=== PATIENT | female | born 1950 | race Caucasian/White ===

== ENCOUNTER 2016-07-08 11:17 | Inpatient (IN) | payer MEDICARE, MEDICAID ==
--- NOTE | 2016-07-08 11:49 | ED Physician Chart ---
Chief Complaint/HPI - Patient Information Date Seen:: 07/08/16 Time Seen:: 11:23 Chief Complaint:: bloody mouth History of Present Illness:: THIS IS A 65 YO SHELTER PATIENT WHO WAS FOUND DOWN WITH BLOOD COMING OUT OR HER MOUTH THIS AM. SHE IS DEMENTED AND CANNOT SPEAK. Allergies:: Allergies Allergy/AdvReac Type Severity Reaction Status Date / Time ampicillin Allergy Verified 07/08/16 11:38 fish derived Allergy Verified 07/08/16 11:37 Penicillins Allergy Verified 07/08/16 11:38 Historian:: EMS, Medical Records Review:: Nurse's Note Reviewed Review of Systems - Review of Systems General/Constitutional: Other (THIS PATIENT IS UNABLE TO GIVE A REVIEW OF SYSTEMS) Past Medical History - Past Medical History Obtainable: Yes Past Medical History: CVA/TIA, Dementia Family History: None Social History: Non Smoker, No Alcohol, No Drug Use Surgical History: None Psychiatricy History: Dementia Medication: Reviewed Family Medical History - Family Member Mother History Unknown: Yes Ethnicity: Unknown Living Status: Unknown Other Medical History: Pt not responsive Physical Exam - Physical Examination General/Constitutional: Well-developed, well-nourished, Alert, No distress, GCS 15, Non-toxic appearing, Ambulatory Other Gen/Cons comments:: ALOC AND ABLE TO THINK AND SPEAK Head: Atraumatic Eyes: Lids, conjuctiva normal, PERRL, EOMI Skin: Nl inspection, No rash, No skin lesions, No ecchymosis, Well hydrated, No lymphadenopathy ENMT: External ears, nose nl, Nasal exam nl, Lips, teeth, gums nl (BLOOD IN THE MOUTH WITH CLOTS AND POOR DENTAL REPAIR.) Neck: Nontender, Full ROM w/o pain, No JVD, No nuchal rigidity, No bruit, No mass, No stridor Respiratory: Nl effort/Exclusion, Clear to Auscultation, No Wheeze/Rhonchi/Rales Cardio Vascular: RRR, No murmur, gallop, rubs, NL S1 S2 GI: No tenderness/rebounding/guarding, No organomegaly, No hernia, Normal BS's, Nondistended, No mass/bruits, No McBurney tenderness : No CVA tenderness Extremities: No tenderness or effusion, Full ROM, normal strength in all extremities, No edema, Normal digits & nails Other Extremities comments:: THERE IS SIGNIFICANT SEVERE MUSCLE WASTING OF ALL FOUR EXTREMITIES. Neuro/Psych: Alert/oriented, DTR's symmetric, Normal sensory exam Other Neuro/Psych comments:: THERE ARE FOCAL WEAK AREAS OF BOTH LOWER EXTREMITIES AND WEAKNESS OF BOTH UPPER EXTREMITIES. Misc: normal gait, Normal back, No paraspinal tenderness Labs/Radiology/EKG Results - Lab Results Results: Abnormal Lab Results 07/08/16 07/08/16 07/08/16 11:50 11:50 11:50 WBC 10.0 RBC 3.85 Hgb 11.4 L Hct 33.7 L MCV 87.5 MCH 29.6 MCHC Differential 33.8 RDW 14.7 Plt Count 246 MPV 9.1 Neutrophils % 76.4 Lymphocytes % 13.8 L Monocytes % 9.1 Eosinophils % 0.7 Basophils % 0.0 Sodium 143 Potassium 5.0 Chloride 112 H Carbon Dioxide 24.0 Anion Gap 12.0 BUN 66 H Creatinine 2.6 H Est GFR ( Amer) 23.6 Est GFR (Non-Af Amer) 19.5 BUN/Creatinine Ratio 25.4 Glucose 348 H Calcium 9.8 Total Bilirubin 0.3 AST 8 L ALT 25 Alkaline Phosphatase 66 Troponin I Total Protein 6.9 Albumin 3.4 L Globulin 3.5 Albumin/Globulin Ratio 1.0 Triglycerides 328 H Cholesterol 150 LDL Cholesterol Direct 70 L HDL Cholesterol 26 07/08/16 11:50 WBC RBC Hgb Hct MCV MCH MCHC Differential RDW Plt Count MPV Neutrophils % Lymphocytes % Monocytes % Eosinophils % Basophils % Sodium Potassium Chloride Carbon Dioxide Anion Gap BUN Creatinine Est GFR ( Amer) Est GFR (Non-Af Amer) BUN/Creatinine Ratio Glucose Calcium Total Bilirubin AST ALT Alkaline Phosphatase Troponin I 0.04 Total Protein Albumin Globulin Albumin/Globulin Ratio Triglycerides Cholesterol LDL Cholesterol Direct HDL Cholesterol - Radiology Results Results: chest x-ray = nad CT SCAN OF FACE = left maxillary sinusitis - EKG Interpretations EKG Time:: 12:07 Rhythm: NSR [place]: LEFT Rate: 85 ED Septic Shock - . Is Septic Shock (SBP<90, OR Lactate>4 mmol\L) present?: No Reassessment (Disposition) - Reassessment Reassessment Condition:: Unchanged - Diagnosis Diagnosis:: FACIAL TRAUMA bleeding from the mouth ESRD DIABETES MELLITUS - Aftercare/Follow up Instructions Aftercare/Follow-Up Instructions:: Counseled pt regarding lab results/diagnosis & need follow up, Refer to Discharge Instructions, Counseled pt & family regarding lab results/diagnosis & need follow up - Patient Disposition Discharge/Transfer:: Home Admitting Medical Physician:: Jees Kirkland Condition at Disposition:: Unchanged
[2016-07-08 12:02] LABS: % EOSINOPHILS 0.7 % (0.0-5.0); % LYMPHOCYTES 13.8 % (20.0-50.0); % MONOCYTES 9.1 % (2.0-10.0); % NEUTROPHILS 76.4 % (40.0-80.0); HEMATOCRIT 33.7 % (35.0-45.0); HEMOGLOBIN 11.4 gm/dL (11.7-16.1); MEAN CELL VOLUME 87.5 fl (81-100); MEAN CORPUSCULAR HEMOGLOBIN 29.6 pg (27.0-31.0); MEAN CORPUSCULAR HGB CONC 33.8 pg (28.0-36.0); MEAN PLATELET VOLUME 9.1 fl; NEUTROPHILE ABSOLUTE 7.6 Th/cmm (1.8-8.0); PLATELET COUNT 246 Th/cmm (150-400); RED BLOOD COUNT 3.85 Mil/cmm (3.80-5.20); RED CELL DISTRIBUTION WIDTH 14.7 % (11.5-20.0)
[2016-07-08 12:23] LABS: BILIRUBIN,TOTAL 0.3 mg/dL (0.3-1.0); BUN/CREATININE RATIO 25.4; CALCIUM SERUM 9.8 mg/dL (8.6-10.3); CHOLESTEROL 150 mg/dL (<200); CREATININE - SERUM 2.6 mg/dL (0.6-1.2); TRIGLYCERIDES 328 mg/dL (<150)
[2016-07-08 13:06] LABS: INR 0.93 (0.5-1.4); PROTHROMBIN TIME (TEST) 9.2 SECONDS (9.5-11.5)
[2016-07-08] MEDS ORDERED: ACETAMINOPHEN 650 MG PO PRN (14:45)
[2016-07-08] MEDS ORDERED: D5-0.45NS 1,000 ML IV SCH (14:45)
[2016-07-08] MEDS ORDERED: MINERAL OIL ENEMA 135 ML BOTTLE RC PRN ×2 (14:45→17:12)
[2016-07-08] MEDS ORDERED: Non-Formulary Item 1 EA (Ondansetron Hcl [Zofran*] 4 MG) PO PRN (14:45)
[2016-07-08] MEDS ORDERED: Dextromethorphan/Quinidine 20mg/10mg Cap PO SCH (14:45)
--- NOTE | 2016-07-08 16:06 | Admit Criteria Form ---
Admit Criteria Forms - Admit Criteria Diagnosis: RENAL FAILURE, CHRONIC Clinical Indications for Admission to Inpatient Care (Place 'X' for any and all applicable criteria): Admission is indicated for ANY ONE of the following (1)(2)(3)(4)(5): [ X]I. Inpatient admission required rather than observation care (Use Renal Failure, Chronic: Observation Care Criteria as appropriate) because of ANY ONE of the following: [ ]a) Volume overload or uremic symptoms (eg, clinically significant pulmonary edema, hypertension, pericarditis, acidosis) too severe for, or not responsive (eg, for over 24 hours) to emergency department or observation care dialysis or treatment regimen (11) [ ]b) Hemodynamic instability that is severe or persistent [ ]c) Respiratory distress that is severe or persistent (11) [ ]d) Clinically significant electrolyte abnormality that requires inpatient care (eg,hyperkalemia with severe ECG findings)[B] [ ]e) Supplement O2 or respiratory therapy for over 24hrs that is performable only in acute inpatient setting [ ]f) Continuous IV infusion of anticoagulation, platelet inhibitor, vasoactive, or Antiarrhythmic medication (15), [ ]g) Pulmonary artery catheter monitoring [ ]h) Temporary pacemaker placement [ ]i) Emergent pericardiocentesis [X ]j) Other condition, treatment or monitoring requiring inpatient admission [ ]II. Unexplained syncope [A] [ ]III. Recurrent seizures [ ]IV. Severe infections not treatable in outpatient setting (eg, peritonitis)(9 ) [ ]V. Cardiac arrhythmias of immediate concern [ ]. Encephalopathy [ ]VII.Bleeding abnormalities (eg, platelet dysfunction) with active (eg, gastrointestinal) bleeding Extended stay beyond goal length of stay may be needed for (3)(4)(35)(36): [ ]a) Continuing uremic complications [ ]b) Comorbidities or complications The original [employer] content created by [employer] has been revised. The portions of the content which have been revised are identified through the use of italic text or in bold, and [employer] [employer] [facility] [employer] has neither reviewed nor approved the modified material. All other unmodified content is copyright [employer]. Please see references footnoted in the original [employer] edition 2016 Admit Criteria Met?: Yes
[2016-07-08] MEDS ORDERED: INSULIN HUMAN REGULAR 100 UNITS/ML UNIT SUBQ SCH ×2 (16:30→21:00)
[2016-07-08] MEDS: D5-0.45NS 1,000 ML IV SCH (16:50)
[2016-07-08] MEDS ORDERED: Magnesium Hydroxide (MOM) 30 mL UDC PO SCH (17:00)
[2016-07-08] MEDS ORDERED: ERYTHROMYCIN BASE TP SCH (17:00)
[2016-07-08] MEDS ORDERED: Prednisolone 1% Ophth Susp 5 mL Bottle RIGHT EYE SCH (17:00)
[2016-07-08] MEDS ORDERED: CLOBETASOL PROPIONATE 0.05% TP SCH (17:00)
[2016-07-08] MEDS ORDERED: Lactulose 10 Gm/15 mL 30mL UDC PO SCH (17:00)
[2016-07-08] MEDS ORDERED: ETHANOL TP SCH (17:00)
[2016-07-08] MEDS ORDERED: Non-Formulary Item 1 EA (Clonidine Hcl [Clonidine Hcl] 0.2 MG) PO SCH (17:00)
[2016-07-08] MEDS: Dextromethorphan/Quinidine 20mg/10mg Cap PO SCH (17:30)
[2016-07-08 20:53] LABS: % LYMPHOCYTES 19.1 % (20.0-50.0); % NEUTROPHILS 69.3 % (40.0-80.0); HEMATOCRIT 32.3 % (35.0-45.0); HEMOGLOBIN 10.8 gm/dL (11.7-16.1); MEAN CELL VOLUME 87.8 fl (81-100); MEAN CORPUSCULAR HEMOGLOBIN 29.4 pg (27.0-31.0); MEAN CORPUSCULAR HGB CONC 33.4 pg (28.0-36.0); MEAN PLATELET VOLUME 8.7 fl; PLATELET COUNT 225 Th/cmm (150-400); RED BLOOD COUNT 3.67 Mil/cmm (3.80-5.20); RED CELL DISTRIBUTION WIDTH 14.5 % (11.5-20.0); WHITE BLOOD COUNT 9.7 Th/cmm (4.8-10.8)
[2016-07-08 20:54] LABS: % EOSINOPHILS 0.7 % (0.0-5.0); % MONOCYTES 9.9 % (2.0-10.0); NEUTROPHILE ABSOLUTE 6.6 Th/cmm (1.8-8.0)
[2016-07-08] MEDS ORDERED: INSULIN GLARGINE SUBQ SCH (21:00)
[2016-07-08] MEDS ORDERED: Non-Formulary Item 1 EA (Melatonin [Melatonin] 5 MG) PO SCH (21:00)
[2016-07-08] MEDS ORDERED: Insulin Detemir 100 units/mL 10mL Vial SUBQ SCH (21:00)
[2016-07-08] MEDS ORDERED: Non-Formulary Item 1 EA (Atorvastatin Calcium [Lipitor] 20 MG) PO SCH (21:00)
[2016-07-08] MEDS ORDERED: INSULIN HUMAN REGULAR 100 UNITS/ML UNIT ONE (22:22)
[2016-07-08] MEDS: Atorvastatin Calcium 10 MG TAB PO SCH (22:47)
[2016-07-08] MEDS: Insulin Detemir 100 units/mL 10mL Vial SUBQ SCH (22:48)
[2016-07-09 06:31] LABS: % BASOPHILS 0.7 % (0.0-2.0); % MONOCYTES 10.7 % (2.0-10.0); HEMOGLOBIN 9.8 gm/dL (11.7-16.1); NEUTROPHILE ABSOLUTE 5.6 Th/cmm (1.8-8.0); RED BLOOD COUNT 3.28 Mil/cmm (3.80-5.20); WHITE BLOOD COUNT 8.5 Th/cmm (4.8-10.8)
[2016-07-09] MEDS: INSULIN ASPART SLIDING SCALE 100 UNITS/ML UNIT SUBQ SCH ×4 (06:39→21:51)
[2016-07-09 06:56] LABS: ANION GAP 6.2 (7.0-16.0); BUN/CREATININE RATIO 27.9; CALCIUM SERUM 9.2 mg/dL (8.6-10.3); CARBON DIOXIDE 24.9 mEq/L (21.0-31.0); CREATININE - SERUM 2.4 mg/dL (0.6-1.2); POTASSIUM SERUM 4.1 mEq/L (3.5-5.1)
[2016-07-09 07:01] LABS: HEMATOCRIT 28.5 % (35.0-45.0); MEAN CELL VOLUME 86.9 fl (81-100); MEAN CORPUSCULAR HEMOGLOBIN 29.9 pg (27.0-31.0)
[2016-07-09 07:02] LABS: % EOSINOPHILS 0.9 % (0.0-5.0); % LYMPHOCYTES 20.6 % (20.0-50.0); % NEUTROPHILS 67.1 % (40.0-80.0); MEAN CORPUSCULAR HGB CONC 34.4 pg (28.0-36.0); MEAN PLATELET VOLUME 9.1 fl; PLATELET COUNT 196 Th/cmm (150-400); RED CELL DISTRIBUTION WIDTH 14.5 % (11.5-20.0)
--- NOTE | 2016-07-09 08:36 | History & Physical ---
CHIEF COMPLAINT: Bleeding from the mouth. HISTORY OF PRESENT ILLNESS: This is a 65-year-old female who was transferred from care home facility to [facility] ER after nursing staff noted bleeding from her mouth. The patient was apparently eating breakfast in the morning after which they noted some bleeding coming from her mouth and lips. They were unable to identify the location of the bleeding. She was subsequently brought here to the ER at [facility] for further evaluation. While in the ER, the patient had some initial lab work. Her WBCs was 10.0, hemoglobin 11.4, hematocrit 33.7, platelets 246. PT/INR was normal at 9.2 and 0.93. Chem-7, sodium 143, potassium 5.0, chloride 112, bicarbonate 24, BUN 66, creatinine 2.6, glucose was 340. Liver enzymes normal ____ alkaline phosphatase 66, ALT was 25, albumin was 3.4. Lipid panel: Cholesterol was 150, triglycerides 328, LDL 70, HDL 26. RPR was nonreactive. Hemoglobin A1c was 7.7. PAST MEDICAL HISTORY: Includes diabetes mellitus, pseudobulbar affect disorder, hypertension, hyperlipidemia, dysphagia, dementia, encephalopathy, generalized anxiety disorder, blindness, anemia, chronic kidney disease, stage III, CVA, muscle weakness, and osteoporosis. ALLERGIES: PENICILLIN. SOCIAL HISTORY: The patient is a resident of a care home facility. Denies any smoking or drinking. FAMILY HISTORY: Noncontributory. MEDICATIONS: See med list. REVIEW OF SYSTEMS: Unable to obtain due to patient's current condition. PHYSICAL EXAMINATION: VITAL SIGNS: Temperature 98.9, pulse 80, respiration 19, blood pressure 148/76. GENERAL: This is a 65-year-old female, well developed, well nourished, appears stated age. HEENT: Normocephalic, atraumatic. Pupils equal, round, reactive to light and accommodation. Extraocular muscles intact. Ears: TMs intact. Oral cavity noted for clots with dark brownish colored blood. NECK: Supple, good range of motion, no thyromegaly, no lymphadenopathy. CARDIOVASCULAR: Regular rate and rhythm, no murmurs, rubs or clicks. LUNGS: Clear to auscultation. No rales, rhonchi or wheezing. ABDOMEN: Soft, nontender, nondistended. Bowel sounds are active in all 4 quadrants. No rebound tenderness or rigidity. No guarding. ASSESSMENT: 1. Bleeding from oral cavity. 2. Diabetes. 3. Pseudobulbar affect disorder. 4. Hypertension. 5. Hyperlipidemia 6. Dysphagia. 7. Dementia. 8. Encephalopathy. 9. Generalized anxiety. 10. Blindness. 11. History of anemia. 12. Chronic kidney disease, stage III. 13. Cerebrovascular accident. 14. Muscle weakness/ 15. Osteoporosis. PLAN: We will repeat CBC for tomorrow morning. We will order a GI consult with Dr. Zamudio. We will type and screen 2 units of packed red blood cells and transfuse only if hemoglobin is less than 8.5. We will hold aspirin for now, but continue current medications. [facility]# [id number]
--- NOTE | 2016-07-09 08:58 | Diagnostic Imaging Report ---
Portable chest x-ray HISTORY: Pain, trauma The overall heart size is difficult to assess with portable technique in a poor inspiration. No focal pulmonary processes. No hilar or mediastinal abnormalities. IMPRESSION: No acute focal pulmonary processes
[2016-07-09] MEDS ORDERED: Calcium Carb/Vit D 500 mg/200 U Tab PO SCH (09:00)
[2016-07-09] MEDS ORDERED: Aspirin 81mg Chewable Tab PO SCH (09:00)
[2016-07-09] MEDS ORDERED: Non-Formulary Item 1 EA (Multivitamin [Multivitamins] 1 SGL) PO SCH (09:00)
[2016-07-09] MEDS ORDERED: ACIDOPH PARACASEI B LACTIS PO SCH (09:00)
[2016-07-09] MEDS: Clobetasol Propionate 0.05% Cream 45 gm Tube TP SCH ×2 (09:02→17:22)
[2016-07-09] MEDS: Prednisolone 1% Ophth Susp 5 mL Bottle RIGHT EYE SCH ×2 (09:03→17:22)
--- NOTE | 2016-07-09 09:07 | Diagnostic Imaging Report ---
CT scan facial bones HISTORY: Pain, trauma Total DLP equals 449 CTDI equals 22.4 Axial sections were obtained through the facial bones. Additional coronal and sagittal reformatted images are provided. There is retention of normal bony margins about the orbits. No fractures. The zygomatic arches are intact. The pterygoid plates are intact. The nasal bones appear normal. Mild mucosal thickening noted within the left and to lesser degree right maxillary sinuses. The nasopharyngeal region is unremarkable. IMPRESSION: 1. No acute bony abnormalities 2. Minimal mucosal thickening within the maxillary sinuses
[2016-07-09] MEDS: D5-0.45NS 1,000 ML IV SCH (13:56)
[2016-07-09] MEDS: Aspirin 81mg Chewable Tab PO SCH (13:57)
[2016-07-09] MEDS: Calcium Carb/Vit D 500 mg/200 U Tab PO SCH (13:57)
[2016-07-09] MEDS: Multivitamin Tab PO SCH (13:58)
[2016-07-09] MEDS: Magnesium Hydroxide (MOM) 30 mL UDC PO SCH ×2 (13:58→17:23)
[2016-07-09] MEDS: Lactulose 10 Gm/15 mL 30mL UDC PO SCH ×2 (13:58→17:23)
[2016-07-09] MEDS: Dextromethorphan/Quinidine 20mg/10mg Cap PO SCH (17:23)
[2016-07-09] MEDS: Atorvastatin Calcium 10 MG TAB PO SCH (21:50)
[2016-07-09] MEDS: Insulin Detemir 100 units/mL 10mL Vial SUBQ SCH (21:52)
[2016-07-10] MEDS: INSULIN ASPART SLIDING SCALE 100 UNITS/ML UNIT SUBQ SCH ×4 (06:38→21:20)
[2016-07-10 09:25] LABS: % BASOPHILS 0.7 % (0.0-2.0); % EOSINOPHILS 0.7 % (0.0-5.0); % LYMPHOCYTES 13.9 % (20.0-50.0); % MONOCYTES 7.2 % (2.0-10.0); % NEUTROPHILS 77.5 % (40.0-80.0); HEMATOCRIT 30.2 % (35.0-45.0); HEMOGLOBIN 10.2 gm/dL (11.7-16.1); MEAN CORPUSCULAR HEMOGLOBIN 29.8 pg (27.0-31.0); MEAN CORPUSCULAR HGB CONC 33.9 pg (28.0-36.0); MEAN PLATELET VOLUME 9.4 fl; NEUTROPHILE ABSOLUTE 5.8 Th/cmm (1.8-8.0); PLATELET COUNT 205 Th/cmm (150-400); RED BLOOD COUNT 3.43 Mil/cmm (3.80-5.20); RED CELL DISTRIBUTION WIDTH 15.2 % (11.5-20.0); WHITE BLOOD COUNT 7.5 Th/cmm (4.8-10.8)
[2016-07-10 09:32] LABS: ANION GAP 5.2 (7.0-16.0); BILIRUBIN,TOTAL 0.4 mg/dL (0.3-1.0); BUN/CREATININE RATIO 27.6; CALCIUM SERUM 9.2 mg/dL (8.6-10.3); CARBON DIOXIDE 23.8 mEq/L (21.0-31.0); CREATININE - SERUM 2.1 mg/dL (0.6-1.2)
[2016-07-10] MEDS: Calcium Carb/Vit D 500 mg/200 U Tab PO SCH (09:46)
[2016-07-10] MEDS: Aspirin 81mg Chewable Tab PO SCH (09:46)
[2016-07-10] MEDS: Lactulose 10 Gm/15 mL 30mL UDC PO SCH ×2 (09:47→16:30)
[2016-07-10] MEDS: Magnesium Hydroxide (MOM) 30 mL UDC PO SCH ×3 (09:48→18:34)
[2016-07-10] MEDS: Multivitamin Tab PO SCH (09:48)
[2016-07-10] MEDS: Prednisolone 1% Ophth Susp 5 mL Bottle RIGHT EYE SCH ×3 (09:57→18:34)
[2016-07-10] MEDS: Clobetasol Propionate 0.05% Cream 45 gm Tube TP SCH ×2 (09:57→14:00)
[2016-07-10] MEDS: Dextromethorphan/Quinidine 20mg/10mg Cap PO SCH (18:33)
--- NOTE | 2016-07-10 20:56 | General Progress Note ---
Subjective - Review of Systems Service Date: 07/10/16 Subjective: DELAYED NOTE ENTRY. NO MORE MOUTH BLEEDING. Objective - Results Result Diagrams: 07/10/16 09:00 07/10/16 09:00 Recent Labs: Laboratory Last Values WBC 7.5 Th/cmm (4.8-10.8) 07/10/16 09:00 RBC 3.43 Mil/cmm (3.80-5.20) L 07/10/16 09:00 Hgb 10.2 gm/dL (11.7-16.1) L 07/10/16 09:00 Hct 30.2 % (35.0-45.0) L 07/10/16 09:00 MCV 88.0 fl (81-100) 07/10/16 09:00 MCH 29.8 pg (27.0-31.0) 07/10/16 09:00 MCHC Differential 33.9 pg (28.0-36.0) 07/10/16 09:00 RDW 15.2 % (11.5-20.0) 07/10/16 09:00 Plt Count 205 Th/cmm (150-400) 07/10/16 09:00 MPV 9.4 fl 07/10/16 09:00 Neutrophils % 77.5 % (40.0-80.0) 07/10/16 09:00 Lymphocytes % 13.9 % (20.0-50.0) L 07/10/16 09:00 Monocytes % 7.2 % (2.0-10.0) 07/10/16 09:00 Eosinophils % 0.7 % (0.0-5.0) 07/10/16 09:00 Basophils % 0.7 % (0.0-2.0) 07/10/16 09:00 PT 9.2 SECONDS (9.5-11.5) L 07/08/16 11:50 INR 0.93 (0.5-1.4) 07/08/16 11:50 PTT (Actin FS) 19.1 SECONDS (26.0-38.0) L 07/08/16 11:50 Sodium 146 mEq/L (136-145) H 07/10/16 09:00 Potassium 4.0 mEq/L (3.5-5.1) 07/10/16 09:00 Chloride 121 mEq/L (98-107) H 07/10/16 09:00 Carbon Dioxide 23.8 mEq/L (21.0-31.0) 07/10/16 09:00 Anion Gap 5.2 (7.0-16.0) L 07/10/16 09:00 BUN 58 mg/dL (7-25) H 07/10/16 09:00 Creatinine 2.1 mg/dL (0.6-1.2) H 07/10/16 09:00 Est GFR ( Amer) 30.2 ml/min (>90) 07/10/16 09:00 Est GFR (Non-Af Amer) 25.0 ml/min 07/10/16 09:00 BUN/Creatinine Ratio 27.6 07/10/16 09:00 Glucose 375 mg/dL (70-105) H 07/10/16 09:00 POC Glucose 327 MG/DL (70 - 105) H 07/10/16 05:50 Hemoglobin A1c % 7.7 % (4.0-6.0) H 07/08/16 13:08 Calcium 9.2 mg/dL (8.6-10.3) 07/10/16 09:00 Total Bilirubin 0.4 mg/dL (0.3-1.0) 07/10/16 09:00 AST 7 U/L (13-39) L 07/10/16 09:00 ALT 12 U/L (7-52) 07/10/16 09:00 Alkaline Phosphatase 53 U/L (34-104) 07/10/16 09:00 Troponin I 0.04 ng/mL (0.01-0.05) 07/08/16 11:50 Total Protein 6.2 gm/dL (6.0-8.3) 07/10/16 09:00 Albumin 3.1 gm/dL (3.7-5.3) L 07/10/16 09:00 Globulin 3.1 gm/dL 07/10/16 09:00 Albumin/Globulin Ratio 1.0 (1.0-1.8) 07/10/16 09:00 Triglycerides 328 mg/dL (<150) H 07/08/16 11:50 Cholesterol 150 mg/dL (<200) 07/08/16 11:50 LDL Cholesterol Direct 70 mg/dL (75-193) L 07/08/16 11:50 HDL Cholesterol 26 mg/dL (23-92) 07/08/16 11:50 RPR NONREACTIVE (NONREACTIVE) 07/08/16 11:50 Blood Type O POSITIVE 07/08/16 20:49 Antibody Screen NEGATIVE 07/08/16 20:49 - Physical Exam Vitals and I&O: Vital Signs Temp 98.7 F 07/10/16 20:00 Pulse 95 07/10/16 20:00 Resp 19 07/10/16 20:00 BP 127/82 07/10/16 20:00 Pulse Ox 95 07/10/16 20:00 Intake & Output 07/10/16 07/10/16 07/11/16 06:59 18:59 06:59 Intake Total 540 Balance 540 Intake: Oral 540 Other: # Voids 3 # Bowel Movements 0 Active Medications: Current Medications Acetaminophen (Tylenol) 325 mg PO Q4H PRN PRN Reason: Fever > 101 Stop: 09/06/16 17:11 Acetaminophen (Tylenol) 650 mg PO Q4H PRN PRN Reason: Pain (Mild) Stop: 09/06/16 17:42 Aspirin (Aspirin Chewable) 81 mg PO DAILY [facility] Stop: 09/07/16 08:59 Last Admin: 07/10/16 09:46 Dose: Not Given Atorvastatin Calcium (Lipitor) 20 mg PO HS [facility] PRN Reason: Protocol Stop: 09/06/16 20:59 Last Admin: 07/09/16 21:50 Dose: 20 mg Brimonidine Tartrate (Alphagan 0.2% Ophth Soln) 1 drop RIGHT EYE BID [facility] Stop: 09/07/16 08:59 Last Admin: 07/10/16 14:00 Dose: 1 drop Calcium/Vitamin D (Oscal W/Vitamin D) 1 tab PO DAILY [facility] Stop: 09/07/16 08:59 Last Admin: 07/10/16 09:46 Dose: Not Given Clobetasol Propionate (Temovate 0.05% Cream) 1 appl TP BID [facility] Stop: 09/07/16 08:59 Last Admin: 07/10/16 14:00 Dose: 1 appl Clonidine HCl (Catapres) 0.2 mg PO BID [facility] Stop: 09/07/16 08:59 Last Admin: 07/10/16 16:37 Dose: 0.2 mg Dextromethorphan/Quinidine (Nuedexta 20mg-10mg) 1 cap PO Q24H [facility] Stop: 09/06/16 17:14 Last Admin: 07/10/16 18:33 Dose: 1 cap Docusate Sodium (Colace) 250 mg PO TID [facility] Stop: 09/06/16 20:59 Last Admin: 07/10/16 14:00 Dose: 250 mg Glipizide (Glucotrol) 5 mg PO BIDAC [facility] Stop: 09/07/16 07:29 Last Admin: 07/10/16 14:00 Dose: 5 mg Insulin Aspart (Novolog Insulin Sliding Scale) 0 units SUBQ ACHS [facility] PRN Reason: Protocol Stop: 09/07/16 07:29 Last Admin: 07/10/16 16:58 Dose: 8 units Insulin Detemir (Levemir Insulin) 35 units SUBQ HS [facility] PRN Reason: Protocol Stop: 09/06/16 20:59 Last Admin: 07/09/16 21:52 Dose: Not Given Lactulose (Cephulac) 30 gm PO BID [facility] Stop: 09/07/16 08:59 Last Admin: 07/10/16 16:30 Dose: 30 gm Latanoprost (Xalatan 0.005% [facility]) 1 drop RIGHT EYE HS [facility] Stop: 09/06/16 20:59 Last Admin: 07/10/16 00:56 Dose: Not Given Magnesium Hydroxide (Milk Of Magnesia) 10 ml PO BID [facility] Stop: 09/07/16 08:59 Last Admin: 07/10/16 18:34 Dose: 10 ml Mineral Oil (Fleet Mineral Oil) 135 ml RC Q24H PRN PRN Reason: Constipation Stop: 09/06/16 17:11 Miscellaneous (Clinical Monitoring) 1 ea MC PRN PRN PRN Reason: RENAL DOSING Stop: 09/08/16 12:47 Multivitamins/Vitamin C (Theragran) 1 tab PO DAILY [facility] Stop: 09/07/16 08:59 Last Admin: 07/10/16 09:48 Dose: Not Given Ondansetron HCl (Zofran Odt) 4 mg PO Q6H PRN PRN Reason: Nausea / Vomiting Stop: 09/06/16 17:11 Pantoprazole Sodium (Protonix) 40 mg IVP DAILY [facility] Stop: 09/08/16 08:59 Last Admin: 07/10/16 10:36 Dose: 40 mg Prednisolone Acetate (Pred Forte 1% Ophth Susp) 1 drop RIGHT EYE BID [facility] Stop: 09/07/16 08:59 Last Admin: 07/10/16 18:34 Dose: 1 drop General: No acute distress HEENT: Atraumatic Neck: Supple Cardiovascular: Regular rate Lungs: Clear to auscultation Abdomen: Bowel sounds Assessment/Plan - Problem List Patient Problems: All Active Problems ORAL BLEEDING WITH NO WITNESSED TRAUMA (Acute) - Assessment Assessment: 1. OROPHARYNGEAL BLEEDING, NOW STOPPED. DOUBT UGI BLEED. 2. ANEMIA. 3. HX ENCEPHALOPATHY. 4. H/O DM - Plan Plan: 1. EGD OFFERED - SISTER KATIE REFUSED. 2. ORAL DIET DREW. 3. PROTONIX. 4. MONITOR HGB; TRANSFUSE PRN.
[2016-07-10] MEDS: Atorvastatin Calcium 10 MG TAB PO SCH (21:12)
[2016-07-10] MEDS: Insulin Detemir 100 units/mL 10mL Vial SUBQ SCH (21:15)
--- NOTE | 2016-07-10 22:49 | Consultation ---
GASTROENTEROLOGY CONSULTATION: REQUESTING PHYSICIAN: Jese Kirkland D.O. REASON FOR CONSULTATION: Possible GI bleed. HISTORY OF PRESENT ILLNESS: A 65-year-old female admitted for initial mouth bleeding. There is a question of also GI bleeding. We were asked to evaluate the patient for further evaluation. By the time she came to this hospital, her bleeding has likely stopped. Past medical is notable for diabetes mellitus, pseudobulbar affect disorder, hypertension, hyperlipidemia, dysphagia, dementia, encephalopathy, generalized anxiety disorder, blindness, anemia, chronic kidney disease stage III, old stroke, muscle weakness and osteoporosis. PAST MEDICAL HISTORY: As above. SOCIAL HISTORY: As above. MEDICATIONS: Here are Tylenol, baby aspirin, Lipitor, eye drops, Os-Roger D, Nuedexta, Colace, Glucotrol, insulin sliding scale, Levemir, lactulose, Fleet enema, milk of magnesia, Protonix, Zofran. ALLERGIES: To ampicillin and penicillin, anything fish arrived. SOCIAL HISTORY: No recent tobacco, alcohol or drugs. FAMILY HISTORY: Noncontributory. REVIEW OF SYSTEMS: Negative. PHYSICAL EXAMINATION: VITAL SIGNS: Temperature of 98.7, blood pressure 127/82, pulse of 95, respirations 19, O2 saturation is 95%. GENERAL: The patient is well-developed elderly female who is in no acute distress, nonverbal. HEENT: Sclerae are nonicteric. Oropharynx is with dried blood in the oropharynx. No active bleeding identified. CARDIOVASCULAR: Regular rate and rhythm. LUNGS: With occasional rhonchi at the bases. ABDOMEN: Soft, nontender, nondistended. EXTREMITIES: No clubbing, cyanosis or edema. RECTAL: Exam is deferred. LABORATORY DATA/IMAGING: WBC initially 9.7, hemoglobin 10.8 this morning it is 9.8, platelet count is normal. INR is normal. Creatinine is 2.4. Liver enzymes are essentially normal. Albumin 3.4. IMPRESSION: 1. Mouth versus upper gastrointestinal bleed. If mouth bleeding, it could be trauma. If upper gastrointestinal bleed, that could be esophagitis, gastritis, peptic ulcer disease, etc. 2. History of diabetes mellitus. 3. History of hypertension. 4. Chronic kidney disease. 5. Mild anemia. RECOMMENDATIONS: 1. Consider upper endoscopy if family is agreeable. 2. Protonix. 3. Antiemetics. 4. Consider n.p.o. versus clear liquids for now. 5. Further recommendations following upper endoscopy if feasible. Thank you, Dr. Jese Kirkland, for involving us in the care of your patient. If you have any further questions, please call us. JOB# [id number]
[2016-07-11] MEDS: INSULIN ASPART SLIDING SCALE 100 UNITS/ML UNIT SUBQ SCH ×4 (07:09→21:24)
[2016-07-11] MEDS: Calcium Carb/Vit D 500 mg/200 U Tab PO SCH (09:31)
[2016-07-11] MEDS: Aspirin 81mg Chewable Tab PO SCH (09:31)
[2016-07-11] MEDS: Clobetasol Propionate 0.05% Cream 45 gm Tube TP SCH ×2 (09:31→18:09)
[2016-07-11] MEDS: Lactulose 10 Gm/15 mL 30mL UDC PO SCH ×2 (09:31→16:53)
[2016-07-11] MEDS: Multivitamin Tab PO SCH (09:31)
[2016-07-11] MEDS: Magnesium Hydroxide (MOM) 30 mL UDC PO SCH ×2 (09:31→16:53)
[2016-07-11] MEDS: Prednisolone 1% Ophth Susp 5 mL Bottle RIGHT EYE SCH ×2 (09:32→17:16)
--- NOTE | 2016-07-11 10:56 | Diagnostic Imaging Report ---
CT scan of the brain without intravenous contrast HISTORY: Stroke, CVA Total DLP equals 636 CTDI equals 35.8 Axial sections were obtained from the base of the skull to the vertex. There is rather marked enlargement of ventricular system and enlargement of cerebral sulci reflecting atrophy somewhat pronounced for the patient's age. Extensive hypodensity is seen throughout the supratentorial ventricular and deep white matter regions. No mass effect. Findings may be associated with chronic small vessel ischemic disease. No acute intracerebral hemorrhage. Again, no mass effect or shift of midline structures. No extra-axial masses or abnormal fluid collections. Atherosclerotic vascular calcification is seen in the region of the vertebral and basilar arteries at the base of the skull. IMPRESSION: 1. No definite acute abnormalities 2. Rather marked cerebral atrophy particularly for patient's age 3. Extensive supratentorial white matter changes that may be associated with chronic small vessel ischemic disease
--- NOTE | 2016-07-11 13:09 | History & Physical ---
HISTORY OF PRESENT ILLNESS: The patient is a 65-year-old. The patient from [facility], unclear what the baseline is. She is basically in bed at the moment. She had been admitted because of some bleeding in the mouth. It is unclear whether she had seizure or not. The patient had noted to be lethargic. Not eating much. Not able to get out of bed. As indicated above, we do not know whether she has had problems or what her baseline is whether she is able to walk or not. PAST MEDICAL HISTORY: Diabetes, hypertension, hyperlipidemia, dysphagia, dementia, encephalopathy, anxiety disorder, blindness. Previous history of CVA, muscles weakness, osteoporosis, kidney, stage III. ALLERGIES: PENICILLIN. SOCIAL HISTORY: She does not smoke or drink. MEDICATIONS: As per reconciliation. REVIEW OF SYSTEMS: Twelve-point negative except for above. PHYSICAL EXAMINATION: VITAL SIGNS: Temperature 98.4, blood pressure 140/74, pulse is around about 82. NECK: Supple. No bruits. HEART: Sounds S1, S2. LUNGS: Clear. ABDOMEN: Soft. NEUROLOGIC: The patient is lying in bed. She will open her eyes to her name actually. She follows some simple instructions for me. For example, she did try to lift her arms up, but weak. Cranial: Pupils react to light. No marked facial paralysis. Motor: She is weak both in the upper and lower extremity. Generally diffusely weak. Reflexes, -1 in upper extremity, ____ absent in the knees and ankles. Gait not tested. INVESTIGATIONS: CT scan of the head shows severe atrophy. Labs noted. IMPRESSION: 1. Encephalopathy. 2. Hypertension. 3. Hyperlipidemia. 4. Dementia. 5. Generalized weakness. 6. Blindness. 7. Previous stroke. No acute stroke noted on the CAT scan. MANAGEMENT: The patient with difficulty swallowing, will have to ____ whether she needs some feeding modality. ____ patient's lab studies. Further workup depending on the progress. JOB# [id number]
--- NOTE | 2016-07-11 13:15 | General Progress Note ---
Subjective - Review of Systems Service Date: 07/11/16 Subjective: DREW ORAL DIET. NO MORE MOUTH BLEEDING. Objective - Results Result Diagrams: 07/10/16 09:00 07/10/16 09:00 Recent Labs: Laboratory Last Values WBC 7.5 Th/cmm (4.8-10.8) 07/10/16 09:00 RBC 3.43 Mil/cmm (3.80-5.20) L 07/10/16 09:00 Hgb 10.2 gm/dL (11.7-16.1) L 07/10/16 09:00 Hct 30.2 % (35.0-45.0) L 07/10/16 09:00 MCV 88.0 fl (81-100) 07/10/16 09:00 MCH 29.8 pg (27.0-31.0) 07/10/16 09:00 MCHC Differential 33.9 pg (28.0-36.0) 07/10/16 09:00 RDW 15.2 % (11.5-20.0) 07/10/16 09:00 Plt Count 205 Th/cmm (150-400) 07/10/16 09:00 MPV 9.4 fl 07/10/16 09:00 Neutrophils % 77.5 % (40.0-80.0) 07/10/16 09:00 Lymphocytes % 13.9 % (20.0-50.0) L 07/10/16 09:00 Monocytes % 7.2 % (2.0-10.0) 07/10/16 09:00 Eosinophils % 0.7 % (0.0-5.0) 07/10/16 09:00 Basophils % 0.7 % (0.0-2.0) 07/10/16 09:00 PT 9.2 SECONDS (9.5-11.5) L 07/08/16 11:50 INR 0.93 (0.5-1.4) 07/08/16 11:50 PTT (Actin FS) 19.1 SECONDS (26.0-38.0) L 07/08/16 11:50 Sodium 146 mEq/L (136-145) H 07/10/16 09:00 Potassium 4.0 mEq/L (3.5-5.1) 07/10/16 09:00 Chloride 121 mEq/L (98-107) H 07/10/16 09:00 Carbon Dioxide 23.8 mEq/L (21.0-31.0) 07/10/16 09:00 Anion Gap 5.2 (7.0-16.0) L 07/10/16 09:00 BUN 58 mg/dL (7-25) H 07/10/16 09:00 Creatinine 2.1 mg/dL (0.6-1.2) H 07/10/16 09:00 Est GFR ( Amer) 30.2 ml/min (>90) 07/10/16 09:00 Est GFR (Non-Af Amer) 25.0 ml/min 07/10/16 09:00 BUN/Creatinine Ratio 27.6 07/10/16 09:00 Glucose 375 mg/dL (70-105) H 07/10/16 09:00 POC Glucose 133 MG/DL (70 - 105) H 07/11/16 11:27 Hemoglobin A1c % 7.7 % (4.0-6.0) H 07/08/16 13:08 Calcium 9.2 mg/dL (8.6-10.3) 07/10/16 09:00 Total Bilirubin 0.4 mg/dL (0.3-1.0) 07/10/16 09:00 AST 7 U/L (13-39) L 07/10/16 09:00 ALT 12 U/L (7-52) 07/10/16 09:00 Alkaline Phosphatase 53 U/L (34-104) 07/10/16 09:00 Troponin I 0.04 ng/mL (0.01-0.05) 07/08/16 11:50 Total Protein 6.2 gm/dL (6.0-8.3) 07/10/16 09:00 Albumin 3.1 gm/dL (3.7-5.3) L 07/10/16 09:00 Globulin 3.1 gm/dL 07/10/16 09:00 Albumin/Globulin Ratio 1.0 (1.0-1.8) 07/10/16 09:00 Triglycerides 328 mg/dL (<150) H 07/08/16 11:50 Cholesterol 150 mg/dL (<200) 07/08/16 11:50 LDL Cholesterol Direct 70 mg/dL (75-193) L 07/08/16 11:50 HDL Cholesterol 26 mg/dL (23-92) 07/08/16 11:50 RPR NONREACTIVE (NONREACTIVE) 07/08/16 11:50 Blood Type O POSITIVE 07/08/16 20:49 Antibody Screen NEGATIVE 07/08/16 20:49 - Physical Exam Vitals and I&O: Vital Signs Temp 98.7 F 07/11/16 08:00 Pulse 85 07/11/16 09:31 Resp 19 07/11/16 08:00 BP 127/82 07/11/16 08:00 Pulse Ox 95 07/11/16 08:00 Intake & Output 07/10/16 07/11/16 07/11/16 18:59 06:59 18:59 Intake Total 790 Balance 790 Intake: Oral 790 Other: # Voids 2 # Bowel Movements 0 Active Medications: Current Medications Acetaminophen (Tylenol) 325 mg PO Q4H PRN PRN Reason: Fever > 101 Stop: 09/06/16 17:11 Acetaminophen (Tylenol) 650 mg PO Q4H PRN PRN Reason: Pain (Mild) Stop: 09/06/16 17:42 Aspirin (Aspirin Chewable) 81 mg PO DAILY [facility] Stop: 09/07/16 08:59 Last Admin: 07/11/16 09:31 Dose: Not Given Atorvastatin Calcium (Lipitor) 20 mg PO HS [facility] PRN Reason: Protocol Stop: 09/06/16 20:59 Last Admin: 07/10/16 21:12 Dose: 20 mg Brimonidine Tartrate (Alphagan 0.2% Ophth Soln) 1 drop RIGHT EYE BID [facility] Stop: 09/07/16 08:59 Last Admin: 07/11/16 09:31 Dose: Not Given Calcium/Vitamin D (Oscal W/Vitamin D) 1 tab PO DAILY [facility] Stop: 09/07/16 08:59 Last Admin: 07/11/16 09:31 Dose: Not Given Clobetasol Propionate (Temovate 0.05% Cream) 1 appl TP BID [facility] Stop: 09/07/16 08:59 Last Admin: 07/11/16 09:31 Dose: Not Given Clonidine HCl (Catapres) 0.2 mg PO BID [facility] Stop: 09/07/16 08:59 Last Admin: 07/11/16 09:31 Dose: Not Given Docusate Sodium (Colace) 250 mg PO TID [facility] Stop: 09/06/16 20:59 Last Admin: 07/11/16 09:31 Dose: Not Given Glipizide (Glucotrol) 5 mg PO BIDAC [facility] Stop: 09/07/16 07:29 Last Admin: 07/11/16 07:07 Dose: 5 mg Potassium Chloride 10 meq/ (Sodium Chloride) 1,005 mls @ 50 mls/hr IV .Q20H6M [facility] Stop: 09/09/16 08:29 Last Admin: 07/11/16 10:49 Dose: 50 mls/hr Insulin Aspart (Novolog Insulin Sliding Scale) 0 units SUBQ ACHS [facility] PRN Reason: Protocol Stop: 09/07/16 07:29 Last Admin: 07/11/16 12:27 Dose: Not Given Insulin Detemir (Levemir Insulin) 35 units SUBQ HS [facility] PRN Reason: Protocol Stop: 09/06/16 20:59 Last Admin: 07/10/16 21:15 Dose: 35 units Lactulose (Cephulac) 30 gm PO BID [facility] Stop: 09/07/16 08:59 Last Admin: 07/11/16 09:31 Dose: Not Given Latanoprost (Xalatan 0.005% [facility]) 1 drop RIGHT EYE HS [facility] Stop: 09/06/16 20:59 Last Admin: 07/10/16 22:17 Dose: Not Given Magnesium Hydroxide (Milk Of Magnesia) 10 ml PO BID [facility] Stop: 09/07/16 08:59 Last Admin: 07/11/16 09:31 Dose: Not Given Mineral Oil (Fleet Mineral Oil) 135 ml RC Q24H PRN PRN Reason: Constipation Stop: 09/06/16 17:11 Miscellaneous (Clinical Monitoring) 1 ea MC PRN PRN PRN Reason: RENAL DOSING Stop: 09/08/16 12:47 Multivitamins/Vitamin C (Theragran) 1 tab PO DAILY [facility] Stop: 09/07/16 08:59 Last Admin: 07/11/16 09:31 Dose: Not Given Ondansetron HCl (Zofran Odt) 4 mg PO Q6H PRN PRN Reason: Nausea / Vomiting Stop: 09/06/16 17:11 Pantoprazole Sodium (Protonix) 40 mg IVP DAILY [facility] Stop: 09/08/16 08:59 Last Admin: 07/11/16 09:32 Dose: 40 mg Prednisolone Acetate (Pred Forte 1% Ophth Susp) 1 drop RIGHT EYE BID [facility] Stop: 09/07/16 08:59 Last Admin: 07/11/16 09:32 Dose: Not Given General: No acute distress HEENT: Atraumatic Neck: Supple Cardiovascular: Regular rate Lungs: Clear to auscultation Abdomen: Bowel sounds, Soft, no Tender Assessment/Plan - Problem List Patient Problems: All Active Problems ORAL BLEEDING WITH NO WITNESSED TRAUMA (Acute) - Assessment Assessment: 1. OROPHARYNGEAL BLEEDING, NOW STOPPED. DOUBT UGI BLEED. 2. ANEMIA. 3. HX ENCEPHALOPATHY. 4. H/O DM - Plan Plan: 1. EGD OFFERED - SISTER KATIE REFUSED. 2. ORAL DIET DREW. 3. PROTONIX. 4. MONITOR HGB; TRANSFUSE PRN. WILL SIGN OFF AND SEE PATIENT NEEDED. PLEASE CALL US IF QUESTIONS.
[2016-07-11] MEDS: Insulin Detemir 100 units/mL 10mL Vial SUBQ SCH (21:23)
[2016-07-11] MEDS: Atorvastatin Calcium 10 MG TAB PO SCH (21:27)
[2016-07-12] MEDS: INSULIN ASPART SLIDING SCALE 100 UNITS/ML UNIT SUBQ SCH ×4 (07:37→21:11)
[2016-07-12] MEDS: Lactulose 10 Gm/15 mL 30mL UDC PO SCH ×3 (09:08→16:26)
[2016-07-12] MEDS: Magnesium Hydroxide (MOM) 30 mL UDC PO SCH ×3 (09:09→16:26)
[2016-07-12] MEDS: Calcium Carb/Vit D 500 mg/200 U Tab PO SCH (09:11)
[2016-07-12] MEDS: Aspirin 81mg Chewable Tab PO SCH (09:12)
[2016-07-12] MEDS: Multivitamin Tab PO SCH (09:12)
[2016-07-12] MEDS: Clobetasol Propionate 0.05% Cream 45 gm Tube TP SCH ×2 (10:28→16:18)
[2016-07-12] MEDS: Prednisolone 1% Ophth Susp 5 mL Bottle RIGHT EYE SCH ×3 (10:28→16:26)
[2016-07-12] MEDS: Atorvastatin Calcium 10 MG TAB PO SCH (20:58)
[2016-07-12] MEDS: Insulin Detemir 100 units/mL 10mL Vial SUBQ SCH (21:10)
--- NOTE | 2016-07-13 02:42 | Consultation ---
The patient is of Dr. Jese Kirkland. HISTORY AND PHYSICAL: This is a 65-year-old female patient who [facility] because of blood from the mouth. The patient has been seen by [id number] assistant navigator and the patient was found to have bleeding from the gums. The patient at the present time has altered level, not responding. PAST MEDICAL HISTORY: Hypertension, diabetes mellitus type 2, old CVA, hypertension, hyperlipidemia, dysphagia, dementia, anxiety disorder, blindness, anemia, CKD stage III, and osteoporosis. FAMILY HISTORY: Unremarkable. SOCIAL HISTORY: No history of smoking or alcohol abuse. ALLERGIES: No known allergies. PHYSICAL EXAMINATION: VITAL SIGNS: Blood pressure 130/80, pulse 70, and respirations 20. HEAD: Normocephalic. No lumps or bumps. EYES: Pupils are equal and reactive to light. Fundi show AV nicking, sclerae white, conjunctivae pink. NECK: Carotid 2+. Normal upstroke. JVD flat. Thyroid not palpable. Lymph nodes not palpable. CHEST: Shows increased AP diameter. No kyphosis or scoliosis. LUNGS: Bilateral bronchovesicular breath sounds. HEART: PMI fifth intercostal space with lateral to midclavicular line. S1, S2. No S3, S4. Systolic murmur, grade 02/6 lower left sternal border without radiation. ABDOMEN: Soft. Liver and spleen not palpable. No organomegaly. Bowel sounds are active. NEUROLOGIC: The patient is altered level. EXTREMITIES: Peripheral pulses 1+. No pedal edema. CLINICAL IMPRESSION: Bleeding from the oral cavity, diabetes mellitus type 2, hypertension, hyperlipidemia, cardiomegaly, dementia, cerebrovascular accident with late effect, blindness, iron deficiency anemia, chronic kidney disease stage III, and osteoporosis. PLAN: The patient to have gastrointestinal evaluation. We will stop the clonidine, it could be the reason the patient is lethargic. We will start the patient on losartan and Norvasc and also get an echocardiogram to evaluate cardiomegaly. JOB# [id number]
[2016-07-13] MEDS ORDERED: Dextrose 50% 50 mL Abboject IVP ONE (06:59)
[2016-07-13] MEDS: INSULIN ASPART SLIDING SCALE 100 UNITS/ML UNIT SUBQ SCH ×2 (07:05→11:54)
[2016-07-13] MEDS: Lactulose 10 Gm/15 mL 30mL UDC PO SCH ×2 (08:49→09:10)
[2016-07-13] MEDS: Aspirin 81mg Chewable Tab PO SCH ×2 (08:49→09:10)
[2016-07-13] MEDS: Magnesium Hydroxide (MOM) 30 mL UDC PO SCH ×2 (08:49→09:10)
[2016-07-13] MEDS: Calcium Carb/Vit D 500 mg/200 U Tab PO SCH ×2 (08:49→09:10)
[2016-07-13] MEDS: Multivitamin Tab PO SCH ×2 (08:50→09:10)
[2016-07-13] MEDS: Clobetasol Propionate 0.05% Cream 45 gm Tube TP SCH (08:51)
[2016-07-13] MEDS: Prednisolone 1% Ophth Susp 5 mL Bottle RIGHT EYE SCH (09:09)
[2016-07-13 10:28] LABS: % BASOPHILS 0.5 % (0.0-2.0); % LYMPHOCYTES 12.7 % (20.0-50.0); % MONOCYTES 5.7 % (2.0-10.0); % NEUTROPHILS 80.1 % (40.0-80.0); HEMOGLOBIN 8.9 gm/dL (11.7-16.1); MEAN CELL VOLUME 87.6 fl (81-100); MEAN CORPUSCULAR HEMOGLOBIN 28.8 pg (27.0-31.0); MEAN CORPUSCULAR HGB CONC 32.8 pg (28.0-36.0); MEAN PLATELET VOLUME 9.9 fl; NEUTROPHILE ABSOLUTE 6.7 Th/cmm (1.8-8.0); PLATELET COUNT 221 Th/cmm (150-400); RED BLOOD COUNT 3.09 Mil/cmm (3.80-5.20); RED CELL DISTRIBUTION WIDTH 14.5 % (11.5-20.0); WHITE BLOOD COUNT 8.4 Th/cmm (4.8-10.8)
[2016-07-13 10:34] LABS: HEMATOCRIT 27.1 % (35.0-45.0)
[2016-07-13 10:45] LABS: ANION GAP 2.4 (7.0-16.0); BILIRUBIN,TOTAL 0.2 mg/dL (0.3-1.0); BUN/CREATININE RATIO 21.1; CALCIUM SERUM 8.6 mg/dL (8.6-10.3); CARBON DIOXIDE 23.3 mEq/L (21.0-31.0); CREATININE - SERUM 1.8 mg/dL (0.6-1.2); POTASSIUM SERUM 3.7 mEq/L (3.5-5.1)
--- NOTE | 2016-07-13 17:53 | Cardiology ---
Patient of Dr. Jese Kirkland. M-MODE ECHOCARDIOGRAM: Technically poor 2D echo only structure visualized in apical 4-chamber view, which showed normal sized left ventricle, left atrium, right ventricle, right atrium, tricuspid and mitral valve, hypertrophy of the left ventricle, ejection fraction 60%. CONCLUSION: Hypertrophy of the left ventricle, ejection fraction 60%. Doppler study shows trace triscuspid regurgitation. Right ventricular systolic pressure ____ mmHg. Technically poor echo. JOB# [id number]
--- NOTE | 2016-07-16 13:51 | Discharge Summary ---
PRELIMINARY DIAGNOSES: 1. Bleeding from the oral cavity. 2. Diabetes mellitus. 3. Pseudobulbar affect disorder. 4. Hypertension. 5. Hyperlipidemia. 6. Dysphagia. 7. Dementia. 8. Encephalopathy. 9. Generalized anxiety. 10. Blindness. 11. History of anemia. 12. Chronic kidney disease, stage III. 13. Cerebrovascular accident. 14. Muscle weakness. 15. Osteoporosis. DISCHARGE DIAGNOSES: 1. Bleeding from oral cavity, now stable. 2. Diabetes mellitus. 3. Pseudobulbar affect disorder. 4. Hypertension. 5. Hyperlipidemia. 6. Dysphagia. 7. Dementia. 8. Encephalopathy. 9. Generalized anxiety. 10. Blindness. 11. History of anemia. 12. Chronic kidney disease, stage III. 13. Cerebrovascular accident. 14. Muscle weakness. 15. Osteoporosis. HISTORY OF PRESENT ILLNESS: This is a 65-year-old female who was transferred from intermediate facility to [facility] ER after nursing staff noted bleeding from the patient's mouth. The patient was apparently eating breakfast in the morning after which they noted some bleeding coming from her mouth and lips. They were unable to identify the location of the bleeding and subsequently the patient was brought to the ER at [facility] for further evaluation and treatment. While in the ER, the patient had some initial lab work, which revealed a white count of 10.0, hemoglobin of 11.4, hematocrit 33.7, platelets of 246,000. PT/INR was normal at 9.2 and 0.93. Chem-7: Sodium was 143, potassium 5.0, chloride 112, bicarbonate 24, BUN ____, creatinine 2.6, glucose ____. Liver enzymes were normal. Alkaline phosphatase 66. ALT 25, albumin 3.4, cholesterol 150, triglycerides 328, LDL 70, HDL 26, RPR was nonreactive. Hemoglobin A1c was 7.7. The patient carries a past medical history of diabetes mellitus, pseudobulbar affect disorder, hypertension, hyperlipidemia, dysphagia, dementia, encephalopathy, generalized anxiety disorder, blindness, anemia, chronic kidney disease, stage III, CVA, muscle weakness, and osteoporosis. HOSPITAL COURSE: The patient improved during her hospital stay. Her evaluation included chest x-ray in the ER, which showed no acute pulmonary process followed by a maxillofacial CT done initially in the ER, which showed no acute bony abnormalities, minimal thickening of her maxillary sinuses was noted; however. The patient was seen and evaluated by Dr. Jacob for GI and also Dr. Akhtar for Neurology and also Dr. Lucius Da Silva for Cardiology. Dr. Jacob initially seen the patient for possible GI bleeding. However, it was found that the bleeding was originally from the oral cavity and not from the GI tract. After further evaluation at that time, endoscopy had been ordered, but eventually was canceled due to the fact that her hemoglobin remained stable throughout her stay and the patient did not require any blood transfusion. The patient, however, was kept n.p.o. initially and was subsequently upgraded to clear liquids and then eventually to pureed diet. The patient was placed on IV Protonix and antiemetics. The patient was also seen by Dr. Akhtar who had ordered a head CT, which revealed no acute abnormalities, however, marked cerebral atrophy noted for the patient's age, extensive supratentorial white matter changes that may be associated with chronic small vessel ischemia was noted. As stated, Dr. Akhtar had seen and evaluated the patient and recommended swallow evaluation to evaluate her oral feeding and further workup was ordered for the patient while in the hospital. The patient also was seen and evaluated by Dr. Lucius Da Silva during which clonidine was discontinued, which may be the cause of her lethargy, and the patient was started on losartan and Norvasc for blood pressure control. Echocardiogram was ordered to evaluate the cardiomegaly noted on the chest x-ray. Echocardiogram did reveal normal ejection fraction of 60% with some hypertrophy of the left ventricle. The patient was subsequently discharged in stable condition to continue her current medications. [facility]# [id number]
== END 2016-07-13 16:00 | DRG 157 ==
LOC: ER 11:17 → MSI 15:01
PROVIDERS: ADMIT Family Medicine; ATTEND Family Medicine
DX: K13.79 Other lesions of oral mucosa (principal); G93.40 Encephalopathy, unspecified; E11.22 Type 2 diabetes mellitus with diabetic chronic kidney disease; R13.10 Dysphagia, unspecified; I69.30 Unspecified sequelae of cerebral infarction; R58 Hemorrhage, not elsewhere classified; F03.90 Unspecified dementia, unspecified severity, without behavioral disturbance, psychotic disturbance, mood disturbance, and anxiety; I12.9 Hypertensive chronic kidney disease with stage 1 through stage 4 chronic kidney disease, or unspecified chronic kidney disease; N18.3 Chronic kidney disease, stage 3 (moderate); F48.2 Pseudobulbar affect; E78.5 Hyperlipidemia, unspecified; F41.1 Generalized anxiety disorder; I51.7 Cardiomegaly; D50.9 Iron deficiency anemia, unspecified; H54.0 Blindness, both eyes; M81.0 Age-related osteoporosis without current pathological fracture; F29 Unspecified psychosis not due to a substance or known physiological condition; M62.81 Muscle weakness (generalized); Z88.1 Allergy status to other antibiotic agents; Z79.4 Long term (current) use of insulin; Z88.0 Allergy status to penicillin; Z91.013 Allergy to seafood
CPT/HCPCS: 36415-UA; 70450-TC; 70486-TC; 71010-TC; 80048-TC; 80053-TC; 80061-TC; 81003-TC; 82948-90; 83036-90; 84484-TC; 85025-TC; 85610-TC; 85730-TC; 86592-TC; 86850-TC; 86900-TC; 86901-TC; 90799; 93005; C9113; J1815; J2650; J3480; X3401; Z7610